=== PATIENT | male | born 1975 | race Caucasian/White ===

== ENCOUNTER 2018-03-23 13:51 | Emergency (ER) | payer SELFPAY ==
[2018-03-23] MEDS ORDERED: Tobramycin/Dexameth OPTH.SUSP* 2.5 M L BTL BOTH EYES ONE (14:48)
--- NOTE | 2018-03-23 15:04 | ED ---
Throat Pain/Nasal Congestion - HPI Summary HPI Summary: Patient is a 42-year-old male presenting to the ED with bilateral eye complaint. He was seen at ophthalmology this morning and was diagnosed with a left injured conjunctiva with corneal abrasion without foreign body and right conjunctivitis. He was prescribed TobraDex 1 drop 3 times a day in each eye daily 1 week. However, he was unable to afford this medication at the pharmacy so came to the ED to obtain this medication. Denies any worsening symptoms from this morning. Endorses some blurry vision in the bilateral eyes with some tearing. Both eyes appear to be slightly swollen. Denies any fevers , sweats, chills. - History of Current Complaint Chief Complaint: EDEyeProblem Time Seen by Provider: 03/23/18 14:29 Hx Obtained From: Patient Onset/Duration: Sudden Onset Severity: Moderate Associated Signs And Symptoms: Positive: Negative - Epiglottits Risk Factors Epiglottis Risk Factors: Negative - Allergies/Home Medications Allergies/Adverse Reactions: Allergies Allergy/AdvReac Type Severity Reaction Status Date / Time No Known Allergies Allergy Verified 03/23/18 13:58 PMH/Surg Hx/FS Hx/Imm Hx Previously Healthy: Yes - Immunization History Hx Pertussis Vaccination: No Immunizations Up to Date: Unable to Obtain/Confirm Infectious Disease History: No Infectious Disease History: Denies: Traveled Outside the [place] in Last 30 Days - Social History Occupation: Employed Full-time Lives: With Family Alcohol Use: None Hx Substance Use: No Substance Use Type: Reports: None Hx Tobacco Use: Yes Review of Systems Constitutional: Negative Negative: Fever, Chills, Fatigue, Skin Diaphoresis Positive: Photophobia, Blurred Vision, Drainage, Erythema Negative: Palpitations, Chest Pain Negative: Shortness Of Breath, Cough Genitourinary: Negative Positive: see HPI Skin: Negative Neurological: Negative All Other Systems Reviewed And Are Negative: Yes Physical Exam Triage Information Reviewed: Yes Vital Signs On Initial Exam: Initial Vitals Temp Pulse Resp BP Pulse Ox 98.8 F 75 16 160/97 97 03/23/18 13:55 03/23/18 13:55 03/23/18 13:55 03/23/18 13:55 03/23/18 13:55 Vital Signs Reviewed: Yes Appearance: Positive: Well-Appearing, Well-Nourished Skin: Positive: Warm, Skin Color Reflects Adequate Perfusion Head/Face: Positive: Normal Head/Face Inspection Eyes: Positive: EOMI, Conjunctiva Inflammed, Discharge - watery discharge bilaterally Neck: Positive: Supple, No Lymphadenopathy Respiratory/Lung Sounds: Positive: Breath Sounds Present Cardiovascular: Positive: RRR, Pulses are Symmetrical in both Upper and Lower Extremities Musculoskeletal: Positive: Normal, Strength/ROM Intact Neurological: Positive: Sensory/Motor Intact, Alert, Oriented to Person Place, Time, Speech Normal Psychiatric: Positive: Affect/Mood Appropriate Diagnostics - Vital Signs Vital Signs Temp Pulse Resp BP Pulse Ox 03/23/18 13:55 98.8 F 75 16 160/97 97 - Laboratory Lab Statement: Any lab studies that have been ordered have been reviewed, and results considered in the medical decision making process. EENT Course/Dx - Course Course Of Treatment: During course of treatment, the patient is evaluated for bilateral eye conjunctivitis with left-sided corneal abrasion. He was seen at Dr. Kathleen office in ophthalmology this morning and was prescribed TobraDex bilaterally. He was unable to afford the medication. On physical examination there is erythema with slight swelling to the bilateral eyes with conjunctival injection and left corneal abrasion with surrounding blood pooling without hyphema. Called ophthalmology clinic to obtain exact medication and dosing as patient was unable to recall. He is given TobraDex here in the ED with instructions of 1 drop 3 times daily in each eye. - Diagnoses Provider Diagnoses: Corneal abrasion, Conjunctivitis Discharge - Sign-Out/Discharge Documenting (check all that apply): Patient Departure - Discharge Plan Condition: Stable Disposition: HOME Patient Education Materials: Corneal Abrasion (ED) Referrals: No Primary Care Phys,NOPCP [Primary Care Provider] - Additional Instructions: 1 drop in both eyes three times daily x 7 days Continue its use, even if you begin to feel better Follow up with ophthalmology as scheduled - Billing Disposition and Condition Condition: STABLE Disposition: Home
[2018-03-23 15:47] VITALS: BP 148/86
== END 2018-03-23 15:45 | disposition home or self-care (01) ==
LOC: ED 13:51
DX: S05.02XA Injury of conjunctiva and corneal abrasion without foreign body, left eye, initial encounter (principal); X58.XXXA Exposure to other specified factors, initial encounter; Y93.9 Activity, unspecified; Y92.9 Unspecified place or not applicable; H10.33 Unspecified acute conjunctivitis, bilateral
CPT/HCPCS: 99282; A9270-GY